=== PATIENT | female | born 1960 | race Caucasian/White ===

== ENCOUNTER 2022-08-03 07:51 | Day surgery (SDC) | payer OTHER, SELFPAY ==
[2022-07-29 10:00] VITALS: BMI 22.1
--- NOTE | 2022-08-02 11:36 | HO.ANESPROP2 ---
Documented by User: Lubna Cordero NP 08/02/22 11:37 HPI - Anesthesia Eval Consult details Narrative: 61yo F for Colonoscopy [facility] Past Medical History Medical History (Updated 07/29/22 @ 09:59 by Francine Jones RN) Anxiety and depression Osteopenia Surgical History Surgical History (Updated 07/29/22 @ 09:59 by Francine Jones RN) H/O colonoscopy Hx of section Hx of dilation and curettage Hx of removal of cyst Social History Social History (Updated 08/03/22 @ 09:33 by Bella Madrigal MD) Patient Tobacco Use Status: Current everyday Tobacco user Tobacco use type: Cigarette Cigarette Packs Per Day: 1 Cigarettes Per Day: 20.0 Smoked in Last 30 Days: Yes Are you DNR?: No Advance Directives: No Advance Directives Information Provided: Yes Meds Allergies Allergy/AdvReac Type Severity Reaction Status Date / Time No Known Allergies Allergy Verified 08/03/22 08:04 [No Known Allergies*] Home Medications Medication Instructions Recorded Confirmed Last Taken Type sertraline 50 mg tablet (Zoloft) 75 mg PO DAILY 07/29/22 07/29/22 08/02/22 History Exam Exam Date and Time: August 02, 2022 1136 Height,Weight and Vital Signs: Height 5 ft 4 in Weight 58.513 kg Assessment and Plan Assessment Anesthesia Assessment: Chart Reviewed Documented by User: Bella Madrigal MD 08/03/22 09:34 [facility] Past Medical History Medical History (Updated 07/29/22 @ 09:59 by Francine Jones RN) Anxiety and depression Osteopenia Family History Family history of problems with anesthesia: No Surgical History Surgical History (Updated 07/29/22 @ 09:59 by Francine Jones RN) H/O colonoscopy Hx of section Hx of dilation and curettage Hx of removal of cyst History of Problems with Anesthesia: No Social History Social History (Updated 08/03/22 @ 09:33 by Bella Madrigal MD) Patient Tobacco Use Status: Current everyday Tobacco user Tobacco use type: Cigarette Cigarette Packs Per Day: 1 Cigarettes Per Day: 20.0 Smoked in Last 30 Days: Yes Are you DNR?: No Advance Directives: No Advance Directives Information Provided: Yes Meds Allergies Allergy/AdvReac Type Severity Reaction Status Date / Time No Known Allergies Allergy Verified 08/03/22 08:04 [No Known Allergies*] Home Medications Medication Instructions Recorded Confirmed Last Taken Type sertraline 50 mg tablet (Zoloft) 75 mg PO DAILY 07/29/22 07/29/22 08/02/22 History Exam Height,Weight and Vital Signs: Height 5 ft 4 in Weight 58.513 kg Vital Signs Temp Pulse Resp BP Pulse Ox O2 Del Method 08/03/22 07:54 97.3 F 70 17 115/56 L 94 Room Air Airway Mallampati Class: I TM Dist: >3cm Neck ROM: Full Loose/Missing/Broken Teeth: No Heart: RRR Lungs: CTAB Assessment and Plan Assessment Anesthesia Assessment: Anesthesia Plan Discussed Final Anesthetic Review Family History of Problems with Anesthesia: No History of Problems with Anesthesia: No NPO: Yes ASA Class: II Final Preanesthetic Review: No Changes in Pt Med Stat, Meds/Allgs Chart Reviewed, Consent Obtained/Reviewed and Anes Risks/Benef Reviewed Patient Risk: Low Procedure Risk: Low Assessment/Block/Sedation in SS: Assess/Block/Sedation-SS Anesthetic Plan Anesthetic Plan: MAC: Disposition: Standard PACU
[2022-08-03 07:54] VITALS: BP 115/56; PULSE 70; RESP 17; TEMP 36.3; O2SAT 94
[2022-08-03] MEDS: Lactated Ringers 1,000 ML 100 ML IVCONT (08:09)
--- NOTE | 2022-08-03 09:50 | MHC.SHP ---
Pre-Procedural Eval Section A Date of Service: 08/03/22 Section B Chief Complaint: screening Details of Present Illness: see H&P no changes Relevant Family History (Specify if Yes): No Relevant Social History: Tobacco Use Present Medications: None Medical History: No relevant PMH History of Previous Operations: No relevant previous surgery Allergies: Allergies Allergy/AdvReac Type Severity Reaction Status Date / Time No Known Allergies Allergy Verified 08/03/22 08:04 [No Known Allergies*] Review of Systems Sugical H&P ROS: Negative: Constitution, Cardiovascular, Respiratory, Neurological, Psychiatric, Hem-Onc, Allergic/Immunologic, Gastrointestinal, Genitourinary, Musculoskeletal, Integumentary, Endocrine and Eyes/Ears/Nose/Throat Exam Surgical H&P Exam: Normal: HEENT, Normal: Heart, Normal: Lungs, Normal: Extremities, Normal: Abdomen, Normal: Skin and Normal: Neurological Plan Diagnosis/Plan: Unchanged I have reviewed the history and physical and performed a pertinent physical examination on my patient. No changes have occurred unless specified.
--- NOTE | 2022-08-03 09:51 | PM.OP ---
Brief Operative Note Date of Service: 08/03/22 Pre-op diagnosis: screening Post-op diagnosis: same Procedure: colonoscopy Surgeon: Elmer kAhtar Anesthesia: MAC Was an Contract Analyst used for this Procedure?: No Estimated blood loss (mL): 0 Pathology: other Condition: stable Disposition: PACU
[2022-08-03 09:52] VITALS: BP 91/49; PULSE 70; RESP 22; TEMP 36.7; O2SAT 96
--- NOTE | 2022-08-03 10:06 | OP_ITS ---
SURGEON: Elmer Akhtar MD INDICATIONS: Colon cancer screening and prior history of adenomatous colon polyps. PREOPERATIVE DIAGNOSIS: POSTOPERATIVE DIAGNOSIS: PROCEDURE PERFORMED: ESTIMATED BLOOD LOSS: COMPLICATIONS: ANESTHESIA: ASSISTANTS: SPECIMENS: PROCEDURES: Colonoscopy to the terminal ileum with snare polypectomy on 08/03/22. MEDICATIONS: Monitored anesthesia care. DESCRIPTION OF PROCEDURE: History and physical performed. The risks and benefits of the procedure were explained to the patient. Informed consent was obtained. The patient was placed in the left lateral decubitus position. A digital rectal exam was performed and was found to be normal. The Olympus pediatric videocolonoscope was introduced into the rectum and advanced to the cecum without difficulty. The cecum was identified by transillumination, palpation, and identification of ileocecal valve. Examination was performed and the scope was removed. She tolerated the procedure well and was taken to Recovery in stable condition. FINDINGS: Limited examination. The terminal ileum was within normal limits. The visualized colonic mucosa was normal. The quality of the prep was good. At 20 cm from the anal verge, was an 8 mm polyp, which was removed with a snare and recovered via suction. No other polyps were identified. Retroflexed examination showed small internal hemorrhoids. IMPRESSION: Colon polyp. RECOMMENDATION: Follow up the biopsy results. MD RYNE Gomez/ADALBERTO / [id number] MTDD
[2022-08-03 10:12] VITALS: BP 119/71; PULSE 71; RESP 18; TEMP 36.7; O2SAT 97
== END 2022-08-03 10:37 | disposition home or self-care (01) ==
PROVIDERS: PCP Nurse Practitioner Family; Visit Provider Internal Medicine Gastroenterology
PROC: 0DJD8ZZ Inspection of Lower Intestinal Tract, Via Natural or Artificial Opening Endoscopic (ICD-10-PCS; CPT 45378; principal; 2022-08-03 09:10)
DX: Z12.11 Encounter for screening for malignant neoplasm of colon (principal); Z86.010 Personal history of colon polyps; D12.5 Benign neoplasm of sigmoid colon; K64.8 Other hemorrhoids; M85.80 Other specified disorders of bone density and structure, unspecified site; F32.A Depression, unspecified; F41.1 Generalized anxiety disorder; Z79.899 Other long term (current) drug therapy; F17.210 Nicotine dependence, cigarettes, uncomplicated
CPT/HCPCS: 45385; 88305